=== PATIENT | female | born 1960 | race Hispanic/Latino ===

== ENCOUNTER 2020-08-16 09:29 | Outpatient (CLI) | payer SELFPAY ==
--- NOTE | 2020-08-16 11:32 | XRay Report ---
LUMBOSACRAL SPINE 3 VIEWS INDICATION: PAIN. COMPARISON: None. IMPRESSION: Normal alignment. There is moderate disc space narrowing and mild facet arthropathy at L5-S1. The remaining levels are within normal limits. No acute osseous or soft tissue abnormality. Signer Name: Sukh Torre Jr, MD Signed: 08/16/2020 11:27 AM Workstation Name: [id number]
== END 2020-08-16 09:30 | disposition home or self-care (01) ==
LOC: XRAY 09:29
PROVIDERS: ATTEND Internal Medicine
DX: M48.07 Spinal stenosis, lumbosacral region (principal); M12.88 Other specific arthropathies, not elsewhere classified, other specified site; R93.7 Abnormal findings on diagnostic imaging of other parts of musculoskeletal system; I89.0 Lymphedema, not elsewhere classified
CPT/HCPCS: 72100